=== PATIENT | male | born 1970 | race Caucasian/White ===

== ENCOUNTER 2020-09-06 12:01 | Outpatient (CLI) | payer BC | END 2020-09-06 12:02 | disposition critical access hospital (66) | LOC: EMS 12:01 | PROVIDERS: ATTEND Surgery | DX: K92.0 Hematemesis (principal) | CPT/HCPCS: A0425; A0427 ==

== ENCOUNTER 2020-09-06 12:16 | Inpatient (IN) | payer BC ==
[2020-09-06] MEDS ORDERED: SODIUM CHLORIDE 0.9% 1,000 ML IV STA (12:21)
[2020-09-06] MEDS ORDERED: PANTOPRAZOLE 80 MG in SODIUM CHLORIDE 0.9% 100ML 100 ML IV STA ×4 (12:21)
--- NOTE | 2020-09-06 12:42 | ED Physician Documentation ---
PD HPI GI BLEED - Stated complaint Stated Complaint: GI BLEED - Chief complaint Chief Complaint: Cardiac - History obtained from History obtained from: Patient, EMS - Additional information Additional information: 50-year-old gentleman presents by ambulance from a hotel in [place]. Reportedly he called paramedics for GI bleeding and confusion. He presents very confused with blood around the oropharynx. Reportedly there was alcohol on scene. The patient is confused so no further history is available from him. I was after a delay able to get a hold of his brother, Marko, his phone number is [phone]. Patient has a questionable history of alcoholism. Left [place] 2 weeks ago. Brother does not think he is enough of an alcoholic to get sick from it, nor does he think he is desperate enough to use toxic alcohols. His mother is also available by phone at [phone]. Review of Systems Unable to obtain: AMS, Confused PD PAST MEDICAL HISTORY - Present Medications Home Medications: Ambulatory Orders Medication Instructions Recorded Confirmed No Known Home Medications 09/06/20 09/06/20 - Allergies Allergies/Adverse Reactions: Allergies Allergy/AdvReac Type Severity Reaction Status Date / Time aspirin Allergy Unknown Verified 09/06/20 12:27 Penicillins Allergy Unknown Verified 09/06/20 12:27 Sulfa (Sulfonamide Allergy Unknown Verified 09/06/20 12:27 Antibiotics) PD ED PE NORMAL - Vitals Vital signs reviewed: Yes - General General: Other (confused/garbled speech, dark blood around the mouth) - HEENT HEENT: PERRL, EOMI - Neck Neck: Supple, no meningeal sign, No bony TTP - Cardiac Cardiac: Other (v tachycardia) - Respiratory Respiratory: No respiratory distress, Clear bilaterally - Abdomen Abdomen: Normal bowel sounds, Soft, Non tender - Back Back: No CVA TTP, No spinal TTP - Derm Derm: Normal color, Warm and dry - Extremities Extremities: No edema, No calf tenderness / cord - Neuro Neuro: No motor deficit, No sensory deficit, Other (confused/garbled speech) Results - Vitals Vitals: Vital Signs - 24 hr 09/06/20 09/06/20 09/06/20 12:21 12:26 13:24 Temperature 37.7 C Heart Rate 150 H 133 H 126 H Respiratory 18 18 23 Rate Blood Pressure 176/118 H 177/121 H 169/103 H O2 Saturation 96 96 95 09/06/20 09/06/20 15:26 16:14 Temperature Heart Rate 117 H 115 H Respiratory 23 21 Rate Blood Pressure 172/115 H 168/138 H O2 Saturation 99 95 Oxygen O2 Source Room air - EKG (time done) 1221 Rate: Rate (enter#) (149) Rhythm: Sinus tachycardia [place]: Other (RVH) Intervals: Prolonged QT Ischemia: Non specific changes Computer interpretation: Agree with computer - Labs Labs: Laboratory Tests 09/06/20 09/06/20 09/06/20 12:21 12:50 12:50 WBC 22.6 H RBC 4.75 Hgb 15.1 Hct 45.3 MCV 95.4 H MCH 31.8 H MCHC 33.3 RDW 13.5 Plt Count 303 MPV 9.5 Neut # (Auto) Not Reportable Lymph # (Auto) Not Reportable Stokes # (Auto) Not Reportable Eos # (Auto) Not Reportable Baso # (Auto) Not Reportable Absolute Nucleated RBC Not Reportable Total Counted 100 Band Neuts % (Manual) 6 Abnorm Lymph % (Manual) 0 Nucleated RBC % Not Reportable Neutrophils # (Manual) 20.6 H Lymphocytes # (Manual) 1.1 L Monocytes # (Manual) 0.7 Eosinophils # (Manual) 0.0 Basophils # (Manual) 0.2 H Differential Comment MANUAL DIFFERENTIAL WBC Morphology NORMAL APPEARANCE Platelet Estimate NORMAL (130-450,000) Platelet Morphology NORMAL APPEARANCE RBC Morph Micro Appear NORMAL APPEARANCE PT 13.2 H INR 1.2 VBG pH VBG pCO2 VBG pO2 VBG HCO3 VBG Total CO2 VBG O2 Saturation VBG Base Excess Sodium Potassium Chloride Carbon Dioxide Anion Gap BUN Creatinine Estimated GFR (MDRD) Glucose Lactic Acid Calcium Magnesium Total Bilirubin AST ALT Alkaline Phosphatase Ammonia Troponin I High Sens Total Protein Albumin Globulin Albumin/Globulin Ratio Lipase Urine Color Urine Clarity Urine pH Ur Specific [place] Urine Protein Urine Glucose (UA) Urine Ketones Urine Occult Blood Urine Nitrite Urine Bilirubin Urine Urobilinogen Ur Leukocyte Esterase Urine RBC Urine WBC Ur Squamous Epith Cells Urine Bacteria Urine Mucus Ur Microscopic Review Urine Culture Comments CSF Color CSF Clarity Xanthrochromic CSF WBC CSF RBC CSF Cell Count Tube # CSF Glucose CSF Total Protein Nasal Adenovirus (PCR) NOT DETECTED Nasal B. parapertussis DNA (PCR) NOT DETECTED Nasal Coronavir 229E PCR NOT DETECTED Nasal Coronavir HKU1 PCR NOT DETECTED Nasal Coronavir NL63 PCR NOT DETECTED Nasal Coronavir OC43 PCR NOT DETECTED Nasal Enterovir/Rhinovir PCR NOT DETECTED Nasal Influenza B PCR NOT DETECTED Nasal Influenza A PCR NOT DETECTED Nasal Parainfluen 1 PCR NOT DETECTED Nasal Parainfluen 2 PCR NOT DETECTED Nasal Parainfluen 3 PCR NOT DETECTED Nasal Parainfluen 4 PCR NOT DETECTED Nasal RSV (PCR) NOT DETECTED Nasal B.pertussis DNA PCR NOT DETECTED Nasal C.pneumoniae (PCR) NOT DETECTED Luis Human Metapneumo PCR NOT DETECTED Nasal M.pneumoniae (PCR) NOT DETECTED Nasal SARS-CoV-2 (PCR) NOT DETECTED Salicylates Urine Opiates Screen Ur Oxycodone Screen Urine Methadone Screen Ur Propoxyphene Screen Acetaminophen Ur Barbiturates Screen Ur Tricyclics Screen Ur Phencyclidine Scrn Ur Amphetamine Screen U Methamphetamines Scrn U Benzodiazepines Scrn Urine Cocaine Screen U Cannabinoids Screen Ethyl Alcohol Serum Ketones Blood Type Blood Type Recheck Antibody Screen Crossmatch IS Only 09/06/20 09/06/20 09/06/20 12:50 12:50 12:50 WBC RBC Hgb Hct MCV MCH MCHC RDW Plt Count MPV Neut # (Auto) Lymph # (Auto) Stokes # (Auto) Eos # (Auto) Baso # (Auto) Absolute Nucleated RBC Total Counted Band Neuts % (Manual) Abnorm Lymph % (Manual) Nucleated RBC % Neutrophils # (Manual) Lymphocytes # (Manual) Monocytes # (Manual) Eosinophils # (Manual) Basophils # (Manual) Differential Comment WBC Morphology Platelet Estimate Platelet Morphology RBC Morph Micro Appear PT INR VBG pH VBG pCO2 VBG pO2 VBG HCO3 VBG Total CO2 VBG O2 Saturation VBG Base Excess Sodium 137 Potassium 3.1 L Chloride 102 Carbon Dioxide 15 L Anion Gap 20.0 H BUN 15 Creatinine 1.3 H Estimated GFR (MDRD) 58 L Glucose 201 H Lactic Acid Calcium 8.4 L Magnesium 2.3 Total Bilirubin 1.0 AST 38 ALT 52 Alkaline Phosphatase 72 Ammonia Troponin I High Sens 6.8 Total Protein 8.4 H Albumin 5.1 Globulin 3.4 Albumin/Globulin Ratio 1.5 Lipase 20 L Urine Color Urine Clarity Urine pH Ur Specific [place] Urine Protein Urine Glucose (UA) Urine Ketones Urine Occult Blood Urine Nitrite Urine Bilirubin Urine Urobilinogen Ur Leukocyte Esterase Urine RBC Urine WBC Ur Squamous Epith Cells Urine Bacteria Urine Mucus Ur Microscopic Review Urine Culture Comments CSF Color CSF Clarity Xanthrochromic CSF WBC CSF RBC CSF Cell Count Tube # CSF Glucose CSF Total Protein Nasal Adenovirus (PCR) Nasal B. parapertussis DNA (PCR) Nasal Coronavir 229E PCR Nasal Coronavir HKU1 PCR Nasal Coronavir NL63 PCR Nasal Coronavir OC43 PCR Nasal Enterovir/Rhinovir PCR Nasal Influenza B PCR Nasal Influenza A PCR Nasal Parainfluen 1 PCR Nasal Parainfluen 2 PCR Nasal Parainfluen 3 PCR Nasal Parainfluen 4 PCR Nasal RSV (PCR) Nasal B.pertussis DNA PCR Nasal C.pneumoniae (PCR) Luis Human Metapneumo PCR Nasal M.pneumoniae (PCR) Nasal SARS-CoV-2 (PCR) Salicylates < 6.0 Urine Opiates Screen Ur Oxycodone Screen Urine Methadone Screen Ur Propoxyphene Screen Acetaminophen < 10 L Ur Barbiturates Screen Ur Tricyclics Screen Ur Phencyclidine Scrn Ur Amphetamine Screen U Methamphetamines Scrn U Benzodiazepines Scrn Urine Cocaine Screen U Cannabinoids Screen Ethyl Alcohol < 5.0 Serum Ketones NEGATIVE Blood Type O POSITIVE Blood Type Recheck Antibody Screen NEGATIVE Crossmatch IS Only See Detail 09/06/20 09/06/20 09/06/20 13:16 13:16 14:04 WBC RBC Hgb Hct MCV MCH MCHC RDW Plt Count MPV Neut # (Auto) Lymph # (Auto) Stokes # (Auto) Eos # (Auto) Baso # (Auto) Absolute Nucleated RBC Total Counted Band Neuts % (Manual) Abnorm Lymph % (Manual) Nucleated RBC % Neutrophils # (Manual) Lymphocytes # (Manual) Monocytes # (Manual) Eosinophils # (Manual) Basophils # (Manual) Differential Comment WBC Morphology Platelet Estimate Platelet Morphology RBC Morph Micro Appear PT INR VBG pH 7.249 L VBG pCO2 36.8 L VBG pO2 38.9 VBG HCO3 15.7 L VBG Total CO2 16.9 L VBG O2 Saturation 71.2 VBG Base Excess -10.6 L Sodium Potassium Chloride Carbon Dioxide Anion Gap BUN Creatinine Estimated GFR (MDRD) Glucose Lactic Acid Calcium Magnesium Total Bilirubin AST ALT Alkaline Phosphatase Ammonia 17.8 Troponin I High Sens Total Protein Albumin Globulin Albumin/Globulin Ratio Lipase Urine Color Urine Clarity Urine pH Ur Specific [place] Urine Protein Urine Glucose (UA) Urine Ketones Urine Occult Blood Urine Nitrite Urine Bilirubin Urine Urobilinogen Ur Leukocyte Esterase Urine RBC Urine WBC Ur Squamous Epith Cells Urine Bacteria Urine Mucus Ur Microscopic Review Urine Culture Comments CSF Color CSF Clarity Xanthrochromic CSF WBC CSF RBC CSF Cell Count Tube # CSF Glucose CSF Total Protein Nasal Adenovirus (PCR) Nasal B. parapertussis DNA (PCR) Nasal Coronavir 229E PCR Nasal Coronavir HKU1 PCR Nasal Coronavir NL63 PCR Nasal Coronavir OC43 PCR Nasal Enterovir/Rhinovir PCR Nasal Influenza B PCR Nasal Influenza A PCR Nasal Parainfluen 1 PCR Nasal Parainfluen 2 PCR Nasal Parainfluen 3 PCR Nasal Parainfluen 4 PCR Nasal RSV (PCR) Nasal B.pertussis DNA PCR Nasal C.pneumoniae (PCR) Luis Human Metapneumo PCR Nasal M.pneumoniae (PCR) Nasal SARS-CoV-2 (PCR) Salicylates Urine Opiates Screen NEGATIVE Ur Oxycodone Screen NEGATIVE Urine Methadone Screen NEGATIVE Ur Propoxyphene Screen NEGATIVE Acetaminophen Ur Barbiturates Screen NEGATIVE Ur Tricyclics Screen NEGATIVE Ur Phencyclidine Scrn NEGATIVE Ur Amphetamine Screen NEGATIVE U Methamphetamines Scrn NEGATIVE U Benzodiazepines Scrn NEGATIVE Urine Cocaine Screen NEGATIVE U Cannabinoids Screen NEGATIVE Ethyl Alcohol Serum Ketones Blood Type Blood Type Recheck Antibody Screen Crossmatch IS Only 09/06/20 09/06/20 09/06/20 14:04 14:54 15:50 WBC RBC Hgb Hct MCV MCH MCHC RDW Plt Count MPV Neut # (Auto) Lymph # (Auto) Stokes # (Auto) Eos # (Auto) Baso # (Auto) Absolute Nucleated RBC Total Counted Band Neuts % (Manual) Abnorm Lymph % (Manual) Nucleated RBC % Neutrophils # (Manual) Lymphocytes # (Manual) Monocytes # (Manual) Eosinophils # (Manual) Basophils # (Manual) Differential Comment WBC Morphology Platelet Estimate Platelet Morphology RBC Morph Micro Appear PT INR VBG pH VBG pCO2 VBG pO2 VBG HCO3 VBG Total CO2 VBG O2 Saturation VBG Base Excess Sodium Potassium Chloride Carbon Dioxide Anion Gap BUN Creatinine Estimated GFR (MDRD) Glucose Lactic Acid Calcium Magnesium Total Bilirubin AST ALT Alkaline Phosphatase Ammonia Troponin I High Sens Total Protein Albumin Globulin Albumin/Globulin Ratio Lipase Urine Color STRAW Urine Clarity HAZY Urine pH 6.0 Ur Specific [place] 1.020 Urine Protein 30 H Urine Glucose (UA) 100 H Urine Ketones NEGATIVE Urine Occult Blood MODERATE H Urine Nitrite NEGATIVE Urine Bilirubin NEGATIVE Urine Urobilinogen 0.2 (NORMAL) Ur Leukocyte Esterase NEGATIVE Urine RBC 6-10 H Urine WBC 0-3 Ur Squamous Epith Cells NONE SEEN Urine Bacteria None Seen Urine Mucus Few Strands Ur Microscopic Review INDICATED Urine Culture Comments NOT INDICATED CSF Color COLORLESS CSF Clarity CLEAR Xanthrochromic ABSENT CSF WBC 1 CSF RBC 0 CSF Cell Count Tube # CSF TUBE# 3 CSF Glucose 103 H CSF Total Protein 45 Nasal Adenovirus (PCR) Nasal B. parapertussis DNA (PCR) Nasal Coronavir 229E PCR Nasal Coronavir HKU1 PCR Nasal Coronavir NL63 PCR Nasal Coronavir OC43 PCR Nasal Enterovir/Rhinovir PCR Nasal Influenza B PCR Nasal Influenza A PCR Nasal Parainfluen 1 PCR Nasal Parainfluen 2 PCR Nasal Parainfluen 3 PCR Nasal Parainfluen 4 PCR Nasal RSV (PCR) Nasal B.pertussis DNA PCR Nasal C.pneumoniae (PCR) Luis Human Metapneumo PCR Nasal M.pneumoniae (PCR) Nasal SARS-CoV-2 (PCR) Salicylates Urine Opiates Screen Ur Oxycodone Screen Urine Methadone Screen Ur Propoxyphene Screen Acetaminophen Ur Barbiturates Screen Ur Tricyclics Screen Ur Phencyclidine Scrn Ur Amphetamine Screen U Methamphetamines Scrn U Benzodiazepines Scrn Urine Cocaine Screen U Cannabinoids Screen Ethyl Alcohol Serum Ketones Blood Type Blood Type Recheck O POSITIVE Antibody Screen Crossmatch IS Only 09/06/20 16:19 WBC RBC Hgb Hct MCV MCH MCHC RDW Plt Count MPV Neut # (Auto) Lymph # (Auto) Stokes # (Auto) Eos # (Auto) Baso # (Auto) Absolute Nucleated RBC Total Counted Band Neuts % (Manual) Abnorm Lymph % (Manual) Nucleated RBC % Neutrophils # (Manual) Lymphocytes # (Manual) Monocytes # (Manual) Eosinophils # (Manual) Basophils # (Manual) Differential Comment WBC Morphology Platelet Estimate Platelet Morphology RBC Morph Micro Appear PT INR VBG pH VBG pCO2 VBG pO2 VBG HCO3 VBG Total CO2 VBG O2 Saturation VBG Base Excess Sodium Potassium Chloride Carbon Dioxide Anion Gap BUN Creatinine Estimated GFR (MDRD) Glucose Lactic Acid 3.4 H* Calcium Magnesium Total Bilirubin AST ALT Alkaline Phosphatase Ammonia Troponin I High Sens Total Protein Albumin Globulin Albumin/Globulin Ratio Lipase Urine Color Urine Clarity Urine pH Ur Specific [place] Urine Protein Urine Glucose (UA) Urine Ketones Urine Occult Blood Urine Nitrite Urine Bilirubin Urine Urobilinogen Ur Leukocyte Esterase Urine RBC Urine WBC Ur Squamous Epith Cells Urine Bacteria Urine Mucus Ur Microscopic Review Urine Culture Comments CSF Color CSF Clarity Xanthrochromic CSF WBC CSF RBC CSF Cell Count Tube # CSF Glucose CSF Total Protein Nasal Adenovirus (PCR) Nasal B. parapertussis DNA (PCR) Nasal Coronavir 229E PCR Nasal Coronavir HKU1 PCR Nasal Coronavir NL63 PCR Nasal Coronavir OC43 PCR Nasal Enterovir/Rhinovir PCR Nasal Influenza B PCR Nasal Influenza A PCR Nasal Parainfluen 1 PCR Nasal Parainfluen 2 PCR Nasal Parainfluen 3 PCR Nasal Parainfluen 4 PCR Nasal RSV (PCR) Nasal B.pertussis DNA PCR Nasal C.pneumoniae (PCR) Luis Human Metapneumo PCR Nasal M.pneumoniae (PCR) Nasal SARS-CoV-2 (PCR) Salicylates Urine Opiates Screen Ur Oxycodone Screen Urine Methadone Screen Ur Propoxyphene Screen Acetaminophen Ur Barbiturates Screen Ur Tricyclics Screen Ur Phencyclidine Scrn Ur Amphetamine Screen U Methamphetamines Scrn U Benzodiazepines Scrn Urine Cocaine Screen U Cannabinoids Screen Ethyl Alcohol Serum Ketones Blood Type Blood Type Recheck Antibody Screen Crossmatch IS Only - Rads (name of study) CT of the head, chest, abdomen pelvis done without IV contrast due to the necessity to get it done expeditiously because of patient agitation Radiology: EMP read contemporaneously (Hepatomegaly, left basilar dependent atelectasis, potential colitis, mild perinephric fat stranding) Procedures - General procedure General procedure: He was difficult for IV access, he only had one IV. I personally placed a second IV, a 22-gauge in the right deep brachial vein after ChloraPrep with real-time ultrasound guidance which flushed and freddy well. - Lumbar Puncture Position: Laying left side Location: L3-L4 Anesthesia: Local lidocaine CSF: Clear Other: Sterile prep and drape, Patient tolerated well PD MEDICAL DECISION MAKING - ED course ED course: Per mom: He left to go to [place] to see his kids. 1 week ago was going to go back to [place] but she does not know how he ended up here. He had called on the way back from [place], [place] 1 week ago today. Not sure why he ended up here. Mom also notes that early this morning she received a text from him with information including bank accounts and halfway account numbers. She did not think this was abnormal because she had asked him for this information a few weeks ago. Did not suspect suicidal ideation or attempt. Per brother: He does drink alcohol but not to excess they do not think. They doubt withdrawal. I posited the idea of toxic alcohols given his unexplained acidosis. The have no suspicion of this knowing him. His point of contact is his brother, Marko, [phone]. 50-year-old gentleman presents with vague circumstances but clearly altered mental status, very tachycardic into the 150s, significant leukocytosis and moderate acidosis. No focal neurologic deficits but he is delirious and talking gibberish. Differential diagnosis was broad and includes toxicologic phenomenon, withdrawal phenomenon, infections, meningitis/encephalitis. LP was done and negative. Did culture him up and give him Rocephin and vancomycin out of an abundance of caution given the significant leukocytosis. Covid negative. Spoke with Dr. Johnson for admission at 4:30 PM. Departure - Departure Disposition: 66 [facility] DC/Xfer Clinical Impression: Altered mental status, Acidosis Condition: Serious
[2020-09-06] MEDS ORDERED: PANTOPRAZOLE 40 MG VIAL IVP SCH (12:45)
[2020-09-06 13:13] LABS: BASOPHILS % (AUTO) 0.2 %; HGB - HEMOGLOBIN 15.1 g/dL (14.0-18.0); LYMPHOCYTES % (AUTO) 3.9 %; MEAN CORPUSCULAR HEMOGLOBIN 31.8 pg (27.0-31.0); MEAN CORPUSCULAR HGB CONC 33.3 g/dL (32.0-36.0); MEAN CORPUSCULAR VOLUME 95.4 fL (80.0-94.0); MEAN PLATELET VOLUME 9.5 fL (7.4-11.4); NEUTROPHILS % (AUTO) 91.3 %; PLT - PLATELET COUNT 303 10^3/uL (130-450); RED BLOOD COUNT 4.75 10^6/uL (4.70-6.10); RED CELL DISTRIBUTION WIDTH 13.5 % (12.0-15.0); WHITE BLOOD COUNT 22.6 x10^3/uL (4.8-10.8)
[2020-09-06 13:16] LABS: ABNORMAL LYMPHS % (MANUAL) 0 %
[2020-09-06 13:17] LABS: INR 1.2 (0.8-1.2); PT - PROTHROMBIN TIME 13.2 secs (9.9-12.6)
[2020-09-06 13:24] LABS: VBG PCO2 36.8 mmHg (41-51); VBG PH 7.249 (7.31-7.41); VBG PO2 38.9 mmHg (25-47)
[2020-09-06 13:25] LABS: VBG BASE EXCESS -10.6 mmol/L (-2 - +2); VBG TOTAL CO2 16.9 mmol/L (24-29)
[2020-09-06 13:40] LABS: BAND NEUTROPHILS % (MANUAL) 6 %; BASOPHILS # (MANUAL) 0.2 10^3/uL (0-0.1); BASOPHILS % (MANUAL) 1 %; LYMPHOCYTES # (MANUAL) 1.1 10^3/uL (1.5-3.5); LYMPHOCYTES % (MANUAL) 5 %; MONOCYTES # (MANUAL) 0.7 10^3/uL (0.0-1.0); RBC MORPHOLOGY (MULTIPLE) NORMAL APPEARANCE (NORMAL)
[2020-09-06 13:41] LABS: DIFFERENTIAL COMMENT MANUAL DIFFERENTIAL; PLATELET ESTIMATE, MANUAL NORMAL (130-450,000) (NORMAL); PLATELET MORPHOLOGY NORMAL APPEARANCE (NORMAL)
[2020-09-06 14:05] LABS: ACETAMINOPHEN < 10 ug/mL (10-30); ALBUMIN 5.1 g/dL (3.2-5.5); ALBUMIN/GLOBULIN RATIO 1.5 (1.0-2.2); ALKALINE PHOSPHATASE 72 IU/L (42-121); ALT ALANINE AMINOTRANSFERASE 52 IU/L (10-60); AST ASPARTATE AMINOTRANSFERASE 38 IU/L (10-42); BUN - BLOOD UREA NITROGEN 15 mg/dL (6-20); CALCIUM 8.4 mg/dL (8.5-10.3); CARBON DIOXIDE - CO2 15 mmol/L (21-32); CHLORIDE 102 mmol/L (101-111); CREATININE 1.3 mg/dL (0.6-1.2); GLUCOSE 201 mg/dL (70-100); LIPASE 20 U/L (22-51); MAGNESIUM 2.3 mg/dL (1.7-2.8); SALICYLATE < 6.0 mg/dL; SODIUM 137 mmol/L (135-145); TOTAL PROTEIN 8.4 g/dL (6.7-8.2)
[2020-09-06 14:12] LABS: KETONES, SERUM (ACETEST) NEGATIVE (NEGATIVE)
[2020-09-06 14:14] LABS: MUDS CUTOFF CONCENTRATIONS CUTOFF CONC BELOW:
[2020-09-06 14:26] LABS: AMPHETAMINE SCREEN,URINE NEGATIVE (NEGATIVE); BENZODIAZEPINES SCREEN, URINE NEGATIVE (NEGATIVE); COCAINE SCREEN URINE NEGATIVE (NEGATIVE); METHADONE SCREEN, URINE NEGATIVE (NEGATIVE); METHAMPHETAMINES SCREEN, URINE NEGATIVE (NEGATIVE); OPIATE SCREEN, URINE NEGATIVE (NEGATIVE); OXYCODONE SCREEN, URINE NEGATIVE (NEGATIVE); TRICYCLIC ANTIDEPRESSANT,URINE NEGATIVE (NEGATIVE)
[2020-09-06 14:27] LABS: PROPOXYPHENE SCREEN, URINE NEGATIVE (NEGATIVE)
[2020-09-06 14:32] LABS: C. PNEUMONIAE- RESP PCR PANEL NOT DETECTED
[2020-09-06] MEDS ORDERED: THIAMINE INJ 100 MG in SODIUM CHLORIDE 0.9% 50 ML IV STA (14:55)
--- NOTE | 2020-09-06 14:58 | CT Report ---
PROCEDURE: HEAD WO INDICATIONS: altered, acidosis TECHNIQUE: Noncontrast 4.5 mm thick angled axial sections acquired from the foramen magnum to the vertex. For r adiation dose reduction, the following was used: automated exposure control, adjustment of mA and/or kV according to patient size. COMPARISON: None. FINDINGS: Image quality: Excellent. CSF spaces: Basal cisterns are patent. No extra-axial fluid collections. Ventricles are normal in size and shape. Brain: No midline shift. No intracranial masses or hemorrhage. Mcmahon-white matter interface is norm al. Skull and face: Calvarium and visualized facial bones are intact, without suspicious lesions. Sinuses: Visualized sinuses and mastoids are clear. IMPRESSION: 1. No acute intracranial process. Reviewed by: Tresa Davenport MD on 09/06/2020 2:56 PM PST Approved by: Tresa Davenport MD on 09/06/2020 2:56 PM [facility] Station ID: [id number]
--- NOTE | 2020-09-06 15:00 | CT Report ---
PROCEDURE: CHEST WO INDICATIONS: altered, acidosis TECHNIQUE: Noncontrast 5 mm thick sections acquired from the pulmonary apices to the posterior costophrenic angl es. 7 mm thick coronal and sagittal MIP reformats were then acquired. For radiation dose reduction, the following was used: automated exposure control, adjustment of mA and/or kV according to patient size. COMPARISON: CT abdomen pelvis 09/06/2020 FINDINGS: Image quality: Excellent. Lungs and pleura: No acute air space opacities. No pleural effusions or pneumothorax. Central and peripheral airways are patent and normal in caliber. Mediastinum: Heart size is normal. No pericardial effusion. No mediastinal adenopathy by size crit eria. Thoracic aorta and central pulmonary arteries are normal in size. Esophagus is fluid-filled w ithin the distal portion. Mild hiatal hernia. Bones and chest wall: No suspicious bony lesions. No vertebral body compression fractures. No axil yasmeen or supraclavicular adenopathy by size criteria. The thyroid is normal in size. Abdomen: Hepatic steatosis is present. Otherwise, visualized upper abdominal solid organs and bowel loops appear normal in the absence of contrast. IMPRESSION: 1. Mild hiatal hernia with fluid-filled distal esophagus. 2. Hepatic steatosis. Reviewed by: Tresa Davenport MD on 09/06/2020 2:59 PM PST Approved by: Tresa Davenport MD on 09/06/2020 2:59 PM PST Station ID: [id number]
--- NOTE | 2020-09-06 15:01 | CT Report ---
PROCEDURE: Abdomen/Pelvis WO INDICATIONS: altered, acidosis TECHNIQUE: Noncontrast 5 mm thick sections acquired from the diaphragms to the symphysis. 5 mm coronal and sagi ttal reformats were then performed. For radiation dose reduction, the following was used: automated exposure control, adjustment of mA and/or kV according to patient size. COMPARISON: None. FINDINGS: Image quality: Excellent. ABDOMEN: Lung bases: Dependent atelectasis in posterior aspect of left lung base is seen. Heart size is normal . Solid organs: Spleen is normal in size. Liver is enlarged. Hepatic steatosis is seen. Gallbladder is within normal limits Pancreas is normal in contours. No adrenal nodules. Kidneys are normal in siz e, without hydronephrosis or nephrolithiasis. There is nonspecific mild bilateral perinephric fat st randing. No perinephric fluid collection. Peritoneum and bowel: Small hiatal hernia is seen. There is no evidence of bowel obstruction. No abno rmal gastric or small bowel wall thickening. No free fluid or air. Appendix is visualized and is wit hin normal limits. Questionable wall thickening and mild pericolonic fat stranding involving distal t ransverse colon and ascending colon is seen with narrowing of the lumen. Nodes and vessels: No retroperitoneal or mesenteric adenopathy by size criteria. Aorta and inferior vena cava are normal in caliber. Miscellaneous: No ventral hernias. PELVIS: Genitourinary: Bladder wall thickness is normal. Miscellaneous: No inguinal hernias or adenopathy. Bones: No suspicious bony lesions. No vertebral body compression fractures. IMPRESSION: 1. Questionable distal transverse colon and descending colon wall thickening with mild pericolonic fa t stranding concerning for low-grade infectious inflammatory colitis. No bowel obstruction. Normal ap pendix. No free fluid or free air. 2. Nonspecific mild bilateral perinephric fat stranding. Infectious process such as polynephritis can not be excluded suggest clinical correlation. No renal stone or hydronephrosis. Normal-appearing bila teral ureters and urinary bladder. 3. Hepatomegaly and hepatic steatosis. 4. Mild left basilar dependent atelectasis. Reviewed by: Manuel Negro MD on 09/06/2020 3:00 PM PST Approved by: Manuel Negro MD on 09/06/2020 3:00 PM PST Station ID: [id number]
[2020-09-06] MEDS ORDERED: LORazepam 2 MG/ML VIAL IVP STA (15:15)
[2020-09-06] MEDS ORDERED: cefTRIAXone 2 GM in SODIUM CHLORIDE 0.9% MINIBAG 100 ML IV STA (15:56)
[2020-09-06] MEDS ORDERED: VANCOMYCIN INJ 1.5 GM in SODIUM CHLORIDE 0.9% 500 ML IV STA ×2 (15:57→17:39)
[2020-09-06 16:21] LABS: CSF - GLUCOSE 103 mg/dL (45-70)
[2020-09-06 16:28] LABS: CLARITY,CSF CLEAR (CLEAR); COLOR,CSF COLORLESS (COLORLESS); CSF TUBE # CSF TUBE# 3; CSF XANTHOCHROMIA ABSENT (ABSENT); RED BLOOD CELL,CSF 0 /mm^3 (0-1); WHITE BLOOD CELL,CSF 1 /mm^3 (0-5)
[2020-09-06] MEDS ORDERED: ONDANSETRON 4 MG/2 ML VIAL IVP PRN (16:38)
--- NOTE | 2020-09-06 16:51 | HISTORY & PHYSICAL EXAMINATION ---
Chief Complaint - Chief Complaint Chief Complaint: altered mental status History of Present Illness - Admitted From Admitted From:: [facility] ED - History Obtained From Records Reviewed: yes History obtained from: ED physician and subsequently patient - History of Present Illness HPI Comment/Other: "50-year-old gentleman presents by ambulance from a hotel in [place]. Reportedly he called paramedics for GI bleeding and confusion. He presents very confused with blood around the oropharynx. Reportedly there was alcohol on sc aixa. The patient is confused so no further history is available from him. I was after a delay able to get a hold of his brother, Marko, his phone number is [phone]. Patient has a questionable history of alcoholism. Left [place] 2 weeks ago. Brother does not think he is enough of an alcoholic to get sick from it, nor does he think he is desperate enough to use toxic alcohols. His mother is also available by phone at [phone]." The above history was obtained from the ED physicians H&P because the patient was significantly altered and unable to provide a history at time of admission. Upon arrival to the floor and examination of his tongue/mouth The residue noted appeared black but was not consistent with blood or GI bleed. He was tachycardic. Though awake and alert he was not able to carry on full conversation because his word were not intelligible. History - Past Medical History Cardiovascular: reports: High cholesterol Psych: reports: Depression - Past Surgical History Other past surgical history: Patient denied any surgical history. - Family & Social History Family History Comment/Other: Could not be obtained because patient currently has altered mental status. Social History Notes: Patient does not smoke, use recreational substances. He consumes alcohol unspecified amount. - POLST Patient has POLST: No POLST Status: Full Code Meds/Allgy - Home Medications Home Medications: Ambulatory Orders Medication Instructions Recorded Confirmed Atorvastatin [Lipitor] 40 mg PO QPM 09/06/20 09/07/20 Fluoxetine HCl [Prozac] 20 mg PO DAILY 09/06/20 09/07/20 Amlodipine Besylate/Valsartan 1 each PO DAILY #30 tablet 09/09/20 [Amlodipine-Valsartan 5-160 mg] - Allergies Allergies/Adverse Reactions: Allergies Allergy/AdvReac Type Severity Reaction Status Date / Time aspirin Allergy Unknown Verified 09/06/20 12:27 Penicillins Allergy Unknown Verified 09/06/20 12:27 Sulfa (Sulfonamide Allergy Unknown Verified 09/06/20 12:27 Antibiotics) Review of Systems - Other Findings Other Findings: This was limited because of the patient's altered mental status. Prior Level of Functionality: At baseline patient is independent of activities of daily living. Exam - Vital Signs Vital Signs: Vital Signs x48h Temp Pulse Resp BP Pulse Ox 09/06/20 16:14 115 H 21 168/138 H 95 09/06/20 15:26 117 H 23 172/115 H 99 09/06/20 13:24 126 H 23 169/103 H 95 09/06/20 12:26 133 H 18 177/121 H 96 09/06/20 12:21 37.7 C 150 H 18 176/118 H 96 - Physical Exam General Appearance: positive: No acute distress, Other (Awake, alert, not oriented to place time or reason.) Eyes Bilateral: positive: PERRL, EOMI ENT: positive: Dry mucous membranes Neck: positive: No JVD, Trachea midline Respiratory: positive: Chest non-tender, No respiratory distress, Breath sounds nml. negative: Wheezes, Rales, Rhonchi Cardiovascular: positive: Tachycardia Abdomen: positive: Non-tender, No organomegaly, Nml bowel sounds, No distention. negative: Tenderness, Guarding, Rebound Back: positive: Nml inspection Skin: positive: Color nml, No rash, Warm, Dry Extremities: positive: Non-tender, Full ROM, Nml appearance, No pedal edema Neurologic/Psychiatric: positive: Mood/affect nml, Disoriented to place, Disoriented to time, Other (Unintelligible speech) Conclusion/Plan - Problem List (1) Altered mental status Conclusion/Plan: Etiology undetermined. However differential includes CVA, Intoxication with an undetectable substance, Infection CT head without contrast was unremarkable for any intracranial process. MRI brain has been ordered for the morning. We will do neurochecks. Patient underwent an LP. Analysis was insignificant for a bacterial infection Some sample was sent for culture of CSF. Will await results. Blood cultures pending. Urine analysis was negative for infection. Patient has been placed on a CIWA protocol. (2) Leukocytosis Conclusion/Plan: Etiology undetermined. Patient WBC was 22 with a lactic acid of 3.4. CT abdomen pelvis raised the possibility of low-grade infectious/inflammatory colitis. There was mild pericolonic fat stranding noted. There was also nonspecific mild bilateral perinephric fat stranding for which polynephritis could not be ruled out. There was no renal stone or hydronephrosis. We will continue to monitor. LP analysis does not appear consistent with bacterial meningitis or viral enteritis. However sample has been sent for culture. Blood cultures pending. Patient is on vancomycin and Rocephin 2 g IV daily. will continue. Pharmacy to dose vancomycin UA was not significant for infection. Chest x-ray was unremarkable. (3) Hypertension Conclusion/Plan: Labetalol and hydralazine 10 milligrams IV every 4 hours ordered as needed for SBP > 160 - Lab Results Fish Bones: 09/09/20 04:55 09/09/20 04:55 Core Measures - Anticipated LOS I expect patient to be DC'd or transferred within 96 hours.: Yes - DVT/VTE - Prophylaxis VTE/DVT Device ordered at admit?: Yes VTE/DVT Prophylaxis med ordered at admit?: Yes
[2020-09-06 17:16] LABS: BILIRUBIN,URINE NEGATIVE (NEGATIVE); GLUCOSE, URINE (UA) 100 mg/dL (NEGATIVE); KETONES,URINE (UA) NEGATIVE (NEGATIVE); LEUKOCYTE ESTERASE, URINE NEGATIVE (NEGATIVE); NITRITE,URINE NEGATIVE (NEGATIVE); OCCULT BLOOD,URINE MODERATE (NEGATIVE); PROTEIN,URINE 30 mg/dL (NEGATIVE); UROBILINOGEN,URINE 0.2 (NORMAL) E.U./dL (NORMAL)
[2020-09-06 17:17] LABS: CLARITY,URINE HAZY (CLEAR)
[2020-09-06 17:24] LABS: BACTERIA,URINE None Seen /HPF (None Seen); MUCUS,URINE Few Strands; SQUAMOUS EPITHELIAL CELL,UR NONE SEEN (<= Few)
[2020-09-06] MEDS ORDERED: VANCOMYCIN INJ 2 GM in SODIUM CHLORIDE 0.9% 500 ML IV STA (17:37)
--- NOTE | 2020-09-06 18:26 | PHARMACY PROGRESS NOTE ---
- Therapy Status Vancomycin regimen day #: 1 Therapy status: Awaiting steady state Basis for treatment: Empirical Treatment indication: GI bleed, unknown history Trough goal: 15-20 Concurrent antibiotics: ceftriaxone 2 g q24h - KEL Risk Risk level for Acute Kidney Injury: Moderate Acute Kidney Injury risk factors: Goal trough >15 - Monitoring and Recommendation Clinical response to treatment: I&O Previous 24 hours 09/04/20 09/05/20 09/06/20 23:59 23:59 23:59 Intake Total 1251 Balance 1251 Lab Results 09/06/20 12:50 BUN 15 Creatinine 1.3 H Estimated GFR (MDRD) 58 L Monitoring plan: Daily serum creatinine
[2020-09-06] MEDS ORDERED: hydrALAZINE INJ 20 MG/ML VIAL IVP PRN (18:39)
[2020-09-06] MEDS: LORazepam 1 MG TABLET PO PRN ×2 (19:08→20:40)
[2020-09-06] MEDS: MULTIVITAMIN 10 ML, THIAMINE INJ 100 MG, FOLIC ACID INJ 1 MG in SODIUM CHLORIDE 0.9% 1,... IV SCH (19:08)
[2020-09-06] MEDS: SODIUM CHLORIDE FLUSH 0.9% 10 ML SYRINGE IVP SCH (19:09)
[2020-09-06] MEDS: metroNIDAZOLE 500 MG/100 ML 500 MG/100 ML BAG IV SCH (20:40)
[2020-09-06] MEDS: SODIUM CHLORIDE 0.9% 1,000 ML IV SCH (20:40)
[2020-09-06 21:03] LABS: HGB - HEMOGLOBIN 15.2 g/dL (14.0-18.0); MEAN CORPUSCULAR HEMOGLOBIN 32.2 pg (27.0-31.0); MEAN CORPUSCULAR HGB CONC 34.5 g/dL (32.0-36.0); MEAN CORPUSCULAR VOLUME 93.4 fL (80.0-94.0); MEAN PLATELET VOLUME 9.1 fL (7.4-11.4); RED BLOOD COUNT 4.72 10^6/uL (4.70-6.10); RED CELL DISTRIBUTION WIDTH 13.5 % (12.0-15.0); WHITE BLOOD COUNT 20.2 x10^3/uL (4.8-10.8)
[2020-09-06] MEDS: PANTOPRAZOLE 40 MG VIAL IVP SCH (22:06)
[2020-09-07] MEDS: SODIUM CHLORIDE FLUSH 0.9% 10 ML SYRINGE IVP SCH ×3 (00:31→21:49)
[2020-09-07] MEDS: LORazepam 1 MG TABLET PO PRN ×2 (00:38→03:26)
[2020-09-07] MEDS: VANCOMYCIN INJ 1 GM in SODIUM CHLORIDE 0.9% 250 ML IV SCH ×2 (02:55→14:16)
[2020-09-07] MEDS: metroNIDAZOLE 500 MG/100 ML 500 MG/100 ML BAG IV SCH ×3 (04:30→21:36)
[2020-09-07 05:09] LABS: BASOPHILS % (AUTO) 0.3 %; HGB - HEMOGLOBIN 13.6 g/dL (14.0-18.0); LYMPHOCYTES % (AUTO) 12.9 %; MEAN CORPUSCULAR HEMOGLOBIN 31.5 pg (27.0-31.0); MEAN CORPUSCULAR HGB CONC 33.1 g/dL (32.0-36.0); MEAN CORPUSCULAR VOLUME 95.1 fL (80.0-94.0); MEAN PLATELET VOLUME 9.4 fL (7.4-11.4); MONOCYTES % (AUTO) 8.9 %; NEUTROPHILS % (AUTO) 77.2 %; PLT - PLATELET COUNT 266 10^3/uL (130-450); RED BLOOD COUNT 4.32 10^6/uL (4.70-6.10); RED CELL DISTRIBUTION WIDTH 13.8 % (12.0-15.0); WHITE BLOOD COUNT 17.9 x10^3/uL (4.8-10.8)
[2020-09-07 05:22] LABS: ABNORMAL LYMPHS % (MANUAL) 0 %
[2020-09-07 06:10] LABS: BAND NEUTROPHILS % (MANUAL) 5 %; DIFFERENTIAL COMMENT MANUAL DIFFERENTIAL; LYMPHOCYTES % (MANUAL) 17 %; MONOCYTES # (MANUAL) 1.3 10^3/uL (0.0-1.0); PLATELET ESTIMATE, MANUAL NORMAL (130-450,000) (NORMAL); RBC MORPHOLOGY (MULTIPLE) NORMAL APPEARANCE (NORMAL)
[2020-09-07] MEDS: PRENATAL VITAMIN TABLET PO SCH (08:03)
[2020-09-07] MEDS: PANTOPRAZOLE 40 MG VIAL IVP SCH ×2 (08:03→21:37)
[2020-09-07] MEDS: THIAMINE 100 MG TABLET PO SCH (08:03)
[2020-09-07] MEDS: cefTRIAXone 2 GM in SODIUM CHLORIDE 0.9% MINIBAG 100 ML IV SCH (08:07)
[2020-09-07] MEDS ORDERED: cefTRIAXone 2 GM VIAL ONE (08:07)
--- NOTE | 2020-09-07 08:09 | PROVIDER PROGRESS NOTE ---
Assessment/Plan - Problem List (1) Altered mental status Assessment/Plan: Patient's mentation improve through the course of the day. He was able to tell that he was in [facility] in [place] He acknowledged that he lives in [place] and that he was recently in [place]. However he was unable to tell how he found himself on [facility] when he was returning to [place] from [place]. By evening he was taken out of restraints. Continue CISC protocol (2) Leukocytosis Assessment/Plan: Reactive versus infectious. CT scan of the abdomen pelvis was suggestive of colitis. Patient is on empiric antibiotics with vancomycin, Rocephin and Flagyl due to altered mental status as well. No significant findings on CSF analysis to date. Blood cultures are no growth to date. Patient's white blood cell count today was 17. This is an improvement from 22 yesterday. We will continue to monitor. (3) Hypertension Assessment/Plan: Labetalol and hydralazine 10 milligrams IV every 4 hours ordered as needed for SBP > 160 (4) Colitis Assessment/Plan: Infectious versus inflammatory. Patient is on vancomycin, Rocephin and Flagyl. White blood cell count today is 17 - Current Meds Current Meds: Current Medications Generic Name Dose Route Start Last Admin Trade Name Freq PRN Reason Stop Dose Admin Sodium Chloride 1,000 mls @ 100 mls/hr 09/06/20 17:00 09/06/20 20:40 Normal Saline 0.9% IV 100 mls/hr .Q10H BONNIE Administration Multivitamins 10 ml/ Thiamine 1,011.2 mls @ 100 mls/hr 09/06/20 16:48 09/06/20 22:06 HCl 100 mg/ Folic Acid 1 mg/ IV 100 mls/hr Sodium Chloride DAILY BONNIE Infusion Ceftriaxone Sodium 2 gm/ 100 mls @ 200 mls/hr 09/07/20 09:00 09/07/20 08:07 Sodium Chloride IV 09/12/20 09:29 200 mls/hr DAILY BONNIE Administration Vancomycin HCl 1 gm/ Sodium 250 mls @ 167 mls/hr 09/07/20 03:00 09/07/20 04:30 Chloride IV Infused Q12H BONNIE Infusion Metronidazole 500 mg in 100 mls @ 100 mls/hr 09/06/20 20:00 09/07/20 06:40 Flagyl 500 Mg/100 Ml IV Infused Q8H BONNIE Infusion Lorazepam 1 mg 09/06/20 16:48 09/07/20 03:26 Lorazepam 1 Mg Tablet PO 1 mg Q1H PRN Administration CIWA > 8 Protocol Pantoprazole Sodium 40 mg 09/06/20 21:00 09/07/20 08:03 Pantoprazole 40 Mg Vial IVP 40 mg BID BONNIE Administration Multivit/Folic Acid/Iron 1 tab 09/07/20 09:00 09/07/20 08:03 Vitamin Tablet PO 1 tab DAILY BONNIE Administration Sodium Chloride 10 ml 09/06/20 17:00 09/07/20 08:03 Sodium Chloride Flush 0.9% 10 Ml Syringe IVP 10 ml 0100,0900,1700 BONNIE Administration Thiamine HCl 100 mg 09/07/20 09:00 09/07/20 08:03 Thiamine 100 Mg Tablet PO 100 mg DAILY BONNIE Administration - Lab Result Fish Bone Diagrams: 09/08/20 04:34 09/08/20 04:34 - Additional Planning My Orders: My Active Orders 09/06/20 Dinner Clear Liquid Diet [DIET] 09/06/20 16:38 Activity Orders [RC] Q2HR IO [RC] IOSHIFT Initiate Bowel Care Protocol [RC] .protocol Initiate Line Care Protocol [RC] QSHIFT Initiate Personal Care Protoco [RC] .protocol Telemetry- [RC] Q4HR Vital Signs [RC] Q4HR Ondansetron Inj [Zofran Inj] 4 mg IVP Q6HR PRN Sodium Chloride Flush 0.9% [Normal Saline Flush 0.9%] 10 ml IVP PRN PRN Code Status [OTHERS] Routine Condition of Patient [OTHERS] Routine DVT Prophylaxis [OTHERS] Routine 09/06/20 16:40 SCDs [RC] QSHIFT 09/06/20 16:48 CIWA - AR Score Card [RC] Q4HR LORazepam [Ativan] 1 mg PO Q1H PRN Multivitamin [Infuvite] 10 ml Thiamine Inj [Vitamin B-1 Inj] 100 mg Folic Acid Inj 1 mg Sodium Chloride 0.9% [Normal Saline 0.9%] 1,000 ml IV DAILY 09/06/20 16:49 Vancomycin: Pharmacy To Dose [Vancomycin-Pharmacy To Dose] 1 each ONCE PRN 09/06/20 17:00 Sodium Chloride 0.9% [Normal Saline 0.9%] 1,000 ml IV 100 mls/hr Sodium Chloride Flush 0.9% [Normal Saline Flush 0.9%] 10 ml IVP 0100,0900,1700 09/06/20 18:37 Labetalol Syringe [Trandate Syringe] 10 mg IVP Q4H PRN 09/06/20 18:39 hydrALAZINE INJ [Apresoline Inj] 10 mg IVP Q4H PRN 09/06/20 20:00 metroNIDAZOLE 500 MG/100 ML [Flagyl 500 mg/100 ml] 500 mg in 100 ml IV Q8H 09/06/20 21:00 Pantoprazole [Protonix] 40 mg IVP BID 09/07/20 03:00 Vancomycin Inj [Vancomycin] 1 gm Sodium Chloride 0.9% [Normal Saline 0.9%] 250 ml IV Q12H 09/07/20 09:00 BRAIN WO [MRI] Routine Vitamin [Trinatal Rx 1] 1 tab PO DAILY Thiamine [Vitamin B-1] 100 mg PO DAILY cefTRIAXone [Rocephin] 2 gm Sodium Chloride 0.9% Minibag [Normal Saline 0.9% Minibag] 100 ml IV DAILY 09/08/20 05:00 BMP - BASIC METABOLIC PANEL [CHEM] DAILYLAB CBC - COMP BLD CT W/AUTO DIFF [HEME] DAILYLAB 09/09/20 05:00 BMP - BASIC METABOLIC PANEL [CHEM] DAILYLAB CBC - COMP BLD CT W/AUTO DIFF [HEME] DAILYLAB 09/10/20 05:00 BMP - BASIC METABOLIC PANEL [CHEM] DAILYLAB CBC - COMP BLD CT W/AUTO DIFF [HEME] DAILYLAB 09/11/20 05:00 BMP - BASIC METABOLIC PANEL [CHEM] DAILYLAB CBC - COMP BLD CT W/AUTO DIFF [HEME] DAILYLAB Subjective - Subjective Patient Reports: Other (Patient was in restraints at the time of my exam. His speech was occasionally intelligible however for the most part of conversation his speech was difficult to discern. He did not have any other neurologic s ymptoms. Comprehension was intact. He was able to follow commands appropriately.) Objective Vital Signs: Vital Signs - 24 hr 09/06/20 09/06/20 09/06/20 12:21 12:26 13:24 Temperature 37.7 C Heart Rate 150 H 133 H 126 H Heart Rate [ Brachial] Respiratory 18 18 23 Rate Blood Pressure 176/118 H 177/121 H 169/103 H Blood Pressure [Left Brachial artery] O2 Saturation 96 96 95 09/06/20 09/06/20 09/06/20 15:26 16:14 17:59 Temperature 36.8 C Heart Rate 117 H 115 H Heart Rate [ 120 H Brachial] Respiratory 23 21 20 Rate Blood Pressure 172/115 H 168/138 H Blood Pressure 163/105 H [Left Brachial artery] O2 Saturation 99 95 96 09/06/20 09/07/20 09/07/20 21:00 00:08 04:57 Temperature 36.9 C 37.0 C 37.3 C Heart Rate Heart Rate [ 112 H 108 H 104 H Brachial] Respiratory 18 20 20 Rate Blood Pressure Blood Pressure 155/107 H 154/96 H 150/89 H [Left Brachial artery] O2 Saturation 97 97 96 Oxygen O2 Source Room air I&O (Last 24 Hrs): Intake and Output Totals x24h 09/05/20 09/06/20 09/07/20 23:59 23:59 23:59 Intake Total 2219.333 800 Balance 2219.333 800 General: Alert, Oriented x3 HEENT: Atraumatic, PERRLA, EOMI Neck: Supple, No JVD Neuro: Alert, Non Focal, Other (Not intelligible) Cardiovascular: Regular rate, No murmurs Respiratory: Chest non-tender, No respiratory distress, Breath sounds nml Abdomen: Normal bowel sounds, Soft Extremities: No clubbing, No cyanosis, No edema - Results Results: Laboratory Results WBC 17.9 x10^3/uL (4.8-10.8) H 09/07/20 04:52 RBC 4.32 10^6/uL (4.70-6.10) L 09/07/20 04:52 Hgb 13.6 g/dL (14.0-18.0) L 09/07/20 04:52 Hct 41.1 % (42.0-52.0) L 09/07/20 04:52 MCV 95.1 fL (80.0-94.0) H 09/07/20 04:52 MCH 31.5 pg (27.0-31.0) H 09/07/20 04:52 MCHC 33.1 g/dL (32.0-36.0) 09/07/20 04:52 RDW 13.8 % (12.0-15.0) 09/07/20 04:52 Plt Count 266 10^3/uL (130-450) 09/07/20 04:52 MPV 9.4 fL (7.4-11.4) 09/07/20 04:52 Neut # (Auto) Not Reportable 09/07/20 04:52 Lymph # (Auto) Not Reportable 09/07/20 04:52 [place] # (Auto) Not Reportable 09/07/20 04:52 Eos # (Auto) Not Reportable 09/07/20 04:52 Baso # (Auto) Not Reportable 09/07/20 04:52 Absolute Nucleated RBC Not Reportable 09/07/20 04:52 Total Counted 100 09/07/20 04:52 Band Neuts % (Manual) 5 % (0-10) 09/07/20 04:52 Abnorm Lymph % (Manual) 0 % 09/07/20 04:52 Nucleated RBC % Not Reportable 09/07/20 04:52 Neutrophils # (Manual) 13.6 10^3/uL (1.5-6.6) H 09/07/20 04:52 Lymphocytes # (Manual) 3.0 10^3/uL (1.5-3.5) 09/07/20 04:52 Monocytes # (Manual) 1.3 10^3/uL (0.0-1.0) H 09/07/20 04:52 Eosinophils # (Manual) 0.0 10^3/uL (0-0.7) 09/07/20 04:52 Basophils # (Manual) 0.0 10^3/uL (0-0.1) 09/07/20 04:52 Differential Comment MANUAL DIFFERENTIAL 09/07/20 04:52 WBC Morphology NORMAL APPEARANCE (NORMAL) 09/06/20 12:50 Platelet Estimate NORMAL (130-450,000) (NORMAL) 09/07/20 04:52 Platelet Morphology NORMAL APPEARANCE (NORMAL) 09/06/20 12:50 RBC Morph Micro Appear NORMAL APPEARANCE (NORMAL) 09/07/20 04:52 PT 13.2 secs (9.9-12.6) H 09/06/20 12:50 INR 1.2 (0.8-1.2) 09/06/20 12:50 VBG pH 7.249 (7.31-7.41) L 09/06/20 13:16 VBG pCO2 36.8 mmHg (41-51) L 09/06/20 13:16 VBG pO2 38.9 mmHg (25-47) 09/06/20 13:16 VBG HCO3 15.7 mmol/L (23-28) L 09/06/20 13:16 VBG Total CO2 16.9 mmol/L (24-29) L 09/06/20 13:16 VBG O2 Saturation 71.2 % (60-80) 09/06/20 13:16 VBG Base Excess -10.6 mmol/L (-2 - +2) L 09/06/20 13:16 Sodium 139 mmol/L (135-145) 09/07/20 04:52 Potassium 3.2 mmol/L (3.5-5.0) L 09/07/20 04:52 Chloride 109 mmol/L (101-111) 09/07/20 04:52 Carbon Dioxide 20 mmol/L (21-32) L 09/07/20 04:52 Anion Gap 10.0 (6-13) 09/07/20 04:52 BUN 12 mg/dL (6-20) 09/07/20 04:52 Creatinine 1.0 mg/dL (0.6-1.2) 09/07/20 04:52 Estimated GFR (MDRD) 78 (>89) L 09/07/20 04:52 Glucose 86 mg/dL (70-100) 09/07/20 04:52 Lactic Acid 1.5 mmol/L (0.5-2.2) 09/07/20 04:52 Calcium 8.0 mg/dL (8.5-10.3) L 09/07/20 04:52 Magnesium 2.3 mg/dL (1.7-2.8) 09/06/20 12:50 Total Bilirubin 1.0 mg/dL (0.2-1.0) 09/06/20 12:50 AST 38 IU/L (10-42) 09/06/20 12:50 ALT 52 IU/L (10-60) 09/06/20 12:50 Alkaline Phosphatase 72 IU/L (42-121) 09/06/20 12:50 Ammonia 17.8 umol/L (7-35) 09/06/20 13:16 Total Creatine Kinase 467 IU/L (22-269) H 09/06/20 16:55 Troponin I High Sens 6.8 ng/L (2.3-19.7) 09/06/20 12:50 Total Protein 8.4 g/dL (6.7-8.2) H 09/06/20 12:50 Albumin 5.1 g/dL (3.2-5.5) 09/06/20 12:50 Globulin 3.4 g/dL (2.1-4.2) 09/06/20 12:50 Albumin/Globulin Ratio 1.5 (1.0-2.2) 09/06/20 12:50 Lipase 20 U/L (22-51) L 09/06/20 12:50 Urine Color STRAW 09/06/20 14:04 Urine Clarity HAZY (CLEAR) 09/06/20 14:04 Urine pH 6.0 PH (5.0-7.5) 09/06/20 14:04 Ur Specific [place] 1.020 (1.002-1.030) 09/06/20 14:04 Urine Protein 30 mg/dL (NEGATIVE) H 09/06/20 14:04 Urine Glucose (UA) 100 mg/dL (NEGATIVE) H 09/06/20 14:04 Urine Ketones NEGATIVE mg/dL (NEGATIVE) 09/06/20 14:04 Urine Occult Blood MODERATE (NEGATIVE) H 09/06/20 14:04 Urine Nitrite NEGATIVE (NEGATIVE) 09/06/20 14:04 Urine Bilirubin NEGATIVE (NEGATIVE) 09/06/20 14:04 Urine Urobilinogen 0.2 (NORMAL) E.U./dL (NORMAL) 09/06/20 14:04 Ur Leukocyte Esterase NEGATIVE (NEGATIVE) 09/06/20 14:04 Urine RBC 6-10 /HPF (0-5) H 09/06/20 14:04 Urine WBC 0-3 /HPF (0-3) 09/06/20 14:04 Ur Squamous Epith Cells NONE SEEN (<= Few) 09/06/20 14:04 Urine Bacteria None Seen /HPF (None Seen) 09/06/20 14:04 Urine Mucus Few Strands 09/06/20 14:04 Ur Microscopic Review INDICATED 09/06/20 14:04 Urine Culture Comments NOT INDICATED 09/06/20 14:04 CSF Color COLORLESS (COLORLESS) 09/06/20 15:50 CSF Clarity CLEAR (CLEAR) 09/06/20 15:50 Xanthrochromic ABSENT (ABSENT) 09/06/20 15:50 CSF WBC 1 /mm^3 (0-5) 09/06/20 15:50 CSF RBC 0 /mm^3 (0-1) 09/06/20 15:50 CSF Cell Count Tube # CSF TUBE# 3 09/06/20 15:50 CSF Glucose 103 mg/dL (45-70) H 09/06/20 15:50 CSF Total Protein 45 mg/dL (15-45) 09/06/20 15:50 Nasal Adenovirus (PCR) NOT DETECTED 09/06/20 12:21 Nasal B. parapertussis DNA (PCR) NOT DETECTED 09/06/20 12:21 Nasal Coronavir 229E PCR NOT DETECTED 09/06/20 12:21 Nasal Coronavir HKU1 PCR NOT DETECTED 09/06/20 12:21 Nasal Coronavir NL63 PCR NOT DETECTED 09/06/20 12:21 Nasal Coronavir OC43 PCR NOT DETECTED 09/06/20 12:21 Nasal Enterovir/Rhinovir PCR NOT DETECTED 09/06/20 12:21 Nasal Influenza B PCR NOT DETECTED 09/06/20 12:21 Nasal Influenza A PCR NOT DETECTED 09/06/20 12:21 Nasal Parainfluen 1 PCR NOT DETECTED 09/06/20 12:21 Nasal Parainfluen 2 PCR NOT DETECTED 09/06/20 12:21 Nasal Parainfluen 3 PCR NOT DETECTED 09/06/20 12:21 Nasal Parainfluen 4 PCR NOT DETECTED 09/06/20 12:21 Nasal RSV (PCR) NOT DETECTED 09/06/20 12:21 Nasal B.pertussis DNA PCR NOT DETECTED 09/06/20 12:21 Nasal C.pneumoniae (PCR) NOT DETECTED 09/06/20 12:21 Luis Human Metapneumo PCR NOT DETECTED 09/06/20 12:21 Nasal M.pneumoniae (PCR) NOT DETECTED 09/06/20 12:21 Nasal SARS-CoV-2 (PCR) NOT DETECTED 09/06/20 12:21 Salicylates < 6.0 mg/dL 09/06/20 12:50 Urine Opiates Screen NEGATIVE (NEGATIVE) 09/06/20 14:04 Ur Oxycodone Screen NEGATIVE (NEGATIVE) 09/06/20 14:04 Urine Methadone Screen NEGATIVE (NEGATIVE) 09/06/20 14:04 Ur Propoxyphene Screen NEGATIVE (NEGATIVE) 09/06/20 14:04 Acetaminophen < 10 ug/mL (10-30) L 09/06/20 12:50 Ur Barbiturates Screen NEGATIVE (NEGATIVE) 09/06/20 14:04 Ur Tricyclics Screen NEGATIVE (NEGATIVE) 09/06/20 14:04 Ur Phencyclidine Scrn NEGATIVE (NEGATIVE) 09/06/20 14:04 Ur Amphetamine Screen NEGATIVE (NEGATIVE) 09/06/20 14:04 U Methamphetamines Scrn NEGATIVE (NEGATIVE) 09/06/20 14:04 U Benzodiazepines Scrn NEGATIVE (NEGATIVE) 09/06/20 14:04 Urine Cocaine Screen NEGATIVE (NEGATIVE) 09/06/20 14:04 U Cannabinoids Screen NEGATIVE (NEGATIVE) 09/06/20 14:04 Ethyl Alcohol < 5.0 mg/dL 09/06/20 12:50 Serum Ketones NEGATIVE (NEGATIVE) 09/06/20 12:50 Blood Type O POSITIVE 09/06/20 12:50 Blood Type Recheck O POSITIVE 09/06/20 14:54 Antibody Screen NEGATIVE 09/06/20 12:50 Crossmatch IS Only See Detail 09/06/20 12:50 ABX Reporting Has patient been on IV antibiotics over the past 48 hours?: Yes
[2020-09-07] MEDS: MULTIVITAMIN 10 ML, THIAMINE INJ 100 MG, FOLIC ACID INJ 1 MG in SODIUM CHLORIDE 0.9% 1,... IV SCH (08:21)
[2020-09-07] MEDS: POTASSIUM CHLOR 10 MEQ/100 ML 10 MEQ/100 ML BAG IV SCH ×2 (08:47→09:45)
[2020-09-07] MEDS: SODIUM CHLORIDE 0.9% 1,000 ML IV SCH ×2 (08:51→21:48)
[2020-09-07] MEDS: SODIUM CHLORIDE FLUSH 0.9% 10 ML SYRINGE IVP PRN (21:37)
[2020-09-08] MEDS: SODIUM CHLORIDE FLUSH 0.9% 10 ML SYRINGE IVP SCH ×3 (00:14→16:34)
[2020-09-08] MEDS: VANCOMYCIN INJ 1 GM in SODIUM CHLORIDE 0.9% 250 ML IV SCH (02:57)
[2020-09-08] MEDS: metroNIDAZOLE 500 MG/100 ML 500 MG/100 ML BAG IV SCH ×3 (03:47→19:17)
[2020-09-08 05:18] LABS: BASOPHILS # (AUTO) 0.1 10^3/uL (0.0-0.1); BASOPHILS % (AUTO) 0.5 %; EOSINOPHILS # (AUTO) 0.1 10^3/uL (0.0-0.7); EOSINOPHILS % (AUTO) 0.7 %; HGB - HEMOGLOBIN 12.6 g/dL (14.0-18.0); LYMPHOCYTES # (AUTO) 2.4 10^3/uL (1.5-3.5); LYMPHOCYTES % (AUTO) 22.3 %; MEAN CORPUSCULAR HEMOGLOBIN 31.3 pg (27.0-31.0); MEAN CORPUSCULAR HGB CONC 33.2 g/dL (32.0-36.0); MEAN CORPUSCULAR VOLUME 94.3 fL (80.0-94.0); MEAN PLATELET VOLUME 9.3 fL (7.4-11.4); MONOCYTES # (AUTO) 1.1 10^3/uL (0.0-1.0); MONOCYTES % (AUTO) 9.7 %; NEUTROPHILS # (AUTO) 7.3 10^3/uL (1.5-6.6); NEUTROPHILS % (AUTO) 66.5 %; PLT - PLATELET COUNT 234 10^3/uL (130-450); RED BLOOD COUNT 4.02 10^6/uL (4.70-6.10); RED CELL DISTRIBUTION WIDTH 13.8 % (12.0-15.0)
[2020-09-08 05:25] LABS: CALCIUM 7.9 mg/dL (8.5-10.3); CREATININE 0.9 mg/dL (0.6-1.2)
[2020-09-08] MEDS ORDERED: POTASSIUM CHLORIDE 20 MEQ TABLET PO ONE (08:15)
--- NOTE | 2020-09-08 08:16 | PROVIDER PROGRESS NOTE ---
Assessment/Plan - Problem List (1) Altered mental status Assessment/Plan: Resolved. Patient's mentation is back to normal today. He is able to carry on a full conversation. He tells me on the day of admission he had taken half a bottle of Benadryl pills with about 6 cans of beer. He has been under tremendous stress from problems with his finances and his relationship with his ex. Since his divorce, his ex moved to [place] with the children. The patient lives in [place]. He felt things were getting out of his control. He denies any suicidal ideations currently and denied any previous suicidal atte mpts. He is very remorseful about his actions. He permitted me to talk to his younger brother Marko Osborne and was also agreeable to talk with him Patient was put on suicide precautions yesterday. He was seen by social work today and deemed not to be in danger of harm to himself at present. Patient is still mildly tachycardic. He also has a slightly elevated diastolic blood pressure. He also reports ringing in his ears and is mildly tremulous. We will continue to monitor and treat accordingly. He was given a dose of 1mg Ativan p.o. x1 for anxiety Anticipating patient will be medically stable or cleared for discharge tomorrow. His brother is going to stay with him in [facility] for a few days after discharge. The MRI ordered earlier was discontinued. Vancomycin and Rocephin was discontinued today. It is likely patient would not need CIWA protocol however will keep the order in place for now. Poison control who advised repeating salicylate and liver enzymes. Also advised continued monitoring to resolution of symptoms.. (2) Leukocytosis Assessment/Plan: Improving. Patient's white blood cell count today is 11. This is an improvement from 22 at time of admission. Vancomycin and Rocephin discontinued. Will likely discontinue Flagyl tomorrow. Analysis of CSF has been negative to date. Blood cultures have been no growth to date. (3) Hypertension Assessment/Plan: On labetalol and hydralazine 10 mg IV every 4 hours as needed. (4) Colitis Assessment/Plan: His white blood cell count today was 11. This is an improvement from 22 at day of admission. Vancomycin and Rocephin was discontinued. Will discontinue Flagyl tomorrow. - Current Meds Current Meds: Current Medications Generic Name Dose Route Start Last Admin Trade Name Mahamed PRN Reason Stop Dose Admin Sodium Chloride 1,000 mls @ 100 mls/hr 09/06/20 17:00 09/07/20 21:48 Normal Saline 0.9% IV 100 mls/hr .Q10H BONNIE Administration Ceftriaxone Sodium 2 gm/ 100 mls @ 200 mls/hr 09/07/20 09:00 09/07/20 08:53 Sodium Chloride IV 09/12/20 09:29 Infused DAILY BONNIE Infusion Vancomycin HCl 1 gm/ Sodium 250 mls @ 167 mls/hr 09/07/20 03:00 09/08/20 06:27 Chloride IV Infused Q12H BONNIE Infusion Metronidazole 500 mg in 100 mls @ 100 mls/hr 09/06/20 20:00 09/08/20 04:50 Flagyl 500 Mg/100 Ml IV Infused Q8H BONNIE Infusion Lorazepam 1 mg 09/06/20 16:48 09/07/20 03:26 Lorazepam 1 Mg Tablet PO 1 mg Q1H PRN Administration CIWA > 8 Protocol Pantoprazole Sodium 40 mg 09/06/20 21:00 09/07/20 21:37 Pantoprazole 40 Mg Vial IVP 40 mg BID BONNIE Administration Multivit/Folic Acid/Iron 1 tab 09/07/20 09:00 09/07/20 08:03 Vitamin Tablet PO 1 tab DAILY BONNIE Administration Sodium Chloride 10 ml 09/06/20 16:38 09/07/20 21:37 Sodium Chloride Flush 0.9% 10 Ml Syringe IVP 10 ml PRN PRN Administration NEEDED PER PROVIDER ORDERS Sodium Chloride 10 ml 09/06/20 17:00 09/08/20 00:14 Sodium Chloride Flush 0.9% 10 Ml Syringe IVP 10 ml 0100,0900,1700 BONNIE Administration Thiamine HCl 100 mg 09/07/20 09:00 09/07/20 08:03 Thiamine 100 Mg Tablet PO 100 mg DAILY BONNIE Administration - Lab Result Fish Bone Diagrams: 09/08/20 04:34 09/08/20 04:34 - Additional Planning My Orders: My Active Orders 09/07/20 09:00 BRAIN WO [MRI] Routine Vitamin [Trinatal Rx 1] 1 tab PO DAILY Thiamine [Vitamin B-1] 100 mg PO DAILY cefTRIAXone [Rocephin] 2 gm Sodium Chloride 0.9% Minibag [Normal Saline 0.9% Minibag] 100 ml IV DAILY 09/08/20 08:15 Potassium Chloride [K-Dur] 40 meq PO ONCE ONE 09/09/20 05:00 BMP - BASIC METABOLIC PANEL [CHEM] DAILYLAB CBC - COMP BLD CT W/AUTO DIFF [HEME] DAILYLAB 09/10/20 05:00 BMP - BASIC METABOLIC PANEL [CHEM] DAILYLAB CBC - COMP BLD CT W/AUTO DIFF [HEME] DAILYLAB 09/11/20 05:00 BMP - BASIC METABOLIC PANEL [CHEM] DAILYLAB CBC - COMP BLD CT W/AUTO DIFF [HEME] DAILYLAB Subjective - Subjective Patient Reports: Other (Patient was more awake and alert and able to carry a full conversation today. He is mildly tachycardic and complains of some ringing in his ears. He also complained of a dry mouth and slight dizziness. Slightly ji ttery) Objective Vital Signs: Vital Signs - 24 hr 09/07/20 09/07/20 09/07/20 12:33 15:59 20:19 Temperature 36.7 C 36.8 C 36.8 C Heart Rate [ 102 H 103 H 103 H Brachial] Respiratory 20 24 20 Rate Blood Pressure 142/90 H [Left Brachial artery] Blood Pressure 143/93 H 145/98 H [Right Brachial artery] O2 Saturation 94 95 94 09/08/20 09/08/20 09/08/20 00:25 04:35 07:54 Temperature 36.6 C 36.7 C 36.8 C Heart Rate [ 106 H 103 H 105 H Brachial] Respiratory 18 20 21 Rate Blood Pressure [Left Brachial artery] Blood Pressure 147/90 H 151/100 H 141/105 H [Right Brachial artery] O2 Saturation 97 96 98 Oxygen O2 Source Room air I&O (Last 24 Hrs): Intake and Output Totals x24h 09/06/20 09/07/20 09/08/20 23:59 23:59 23:59 Intake Total 4638.333 5769.534 500 Output Total 5308 550 Balance 2210.651 3644.534 -50 General: Alert, Oriented x3, No acute distress HEENT: PERRLA, EOMI Neck: Supple, No JVD Neuro: Alert, Non Focal, Oriented Times 3 Cardiovascular: Other (Mildly tachycardic) Respiratory: Chest non-tender, No respiratory distress, Breath sounds nml Abdomen: Normal bowel sounds, Soft Extremities: No clubbing, No cyanosis, No edema Skin: No rashes - Results Results: Laboratory Results WBC 11.0 x10^3/uL (4.8-10.8) H 09/08/20 04:34 RBC 4.02 10^6/uL (4.70-6.10) L 09/08/20 04:34 Hgb 12.6 g/dL (14.0-18.0) L 09/08/20 04:34 Hct 37.9 % (42.0-52.0) L 09/08/20 04:34 MCV 94.3 fL (80.0-94.0) H 09/08/20 04:34 MCH 31.3 pg (27.0-31.0) H 09/08/20 04:34 MCHC 33.2 g/dL (32.0-36.0) 09/08/20 04:34 RDW 13.8 % (12.0-15.0) 09/08/20 04:34 Plt Count 234 10^3/uL (130-450) 09/08/20 04:34 MPV 9.3 fL (7.4-11.4) 09/08/20 04:34 Neut # (Auto) 7.3 10^3/uL (1.5-6.6) H 09/08/20 04:34 Lymph # (Auto) 2.4 10^3/uL (1.5-3.5) 09/08/20 04:34 Rowan # (Auto) 1.1 10^3/uL (0.0-1.0) H 09/08/20 04:34 Eos # (Auto) 0.1 10^3/uL (0.0-0.7) 09/08/20 04:34 Baso # (Auto) 0.1 10^3/uL (0.0-0.1) 09/08/20 04:34 Absolute Nucleated RBC 0.00 x10^3/uL 09/08/20 04:34 Total Counted 100 09/07/20 04:52 Band Neuts % (Manual) 5 % (0-10) 09/07/20 04:52 Abnorm Lymph % (Manual) 0 % 09/07/20 04:52 Nucleated RBC % 0.0 /100WBC 09/08/20 04:34 Neutrophils # (Manual) 13.6 10^3/uL (1.5-6.6) H 09/07/20 04:52 Lymphocytes # (Manual) 3.0 10^3/uL (1.5-3.5) 09/07/20 04:52 Monocytes # (Manual) 1.3 10^3/uL (0.0-1.0) H 09/07/20 04:52 Eosinophils # (Manual) 0.0 10^3/uL (0-0.7) 09/07/20 04:52 Basophils # (Manual) 0.0 10^3/uL (0-0.1) 09/07/20 04:52 Differential Comment MANUAL DIFFERENTIAL 09/07/20 04:52 WBC Morphology NORMAL APPEARANCE (NORMAL) 09/06/20 12:50 Platelet Estimate NORMAL (130-450,000) (NORMAL) 09/07/20 04:52 Platelet Morphology NORMAL APPEARANCE (NORMAL) 09/06/20 12:50 RBC Morph Micro Appear NORMAL APPEARANCE (NORMAL) 09/07/20 04:52 PT 13.2 secs (9.9-12.6) H 09/06/20 12:50 INR 1.2 (0.8-1.2) 09/06/20 12:50 VBG pH 7.249 (7.31-7.41) L 09/06/20 13:16 VBG pCO2 36.8 mmHg (41-51) L 09/06/20 13:16 VBG pO2 38.9 mmHg (25-47) 09/06/20 13:16 VBG HCO3 15.7 mmol/L (23-28) L 09/06/20 13:16 VBG Total CO2 16.9 mmol/L (24-29) L 09/06/20 13:16 VBG O2 Saturation 71.2 % (60-80) 09/06/20 13:16 VBG Base Excess -10.6 mmol/L (-2 - +2) L 09/06/20 13:16 Sodium 141 mmol/L (135-145) 09/08/20 04:34 Potassium 3.2 mmol/L (3.5-5.0) L 09/08/20 04:34 Chloride 113 mmol/L (101-111) H 09/08/20 04:34 Carbon Dioxide 19 mmol/L (21-32) L 09/08/20 04:34 Anion Gap 9.0 (6-13) 09/08/20 04:34 BUN 11 mg/dL (6-20) 09/08/20 04:34 Creatinine 0.9 mg/dL (0.6-1.2) 09/08/20 04:34 Estimated GFR (MDRD) 89 (>89) 09/08/20 04:34 Glucose 96 mg/dL (70-100) 09/08/20 04:34 Lactic Acid 1.5 mmol/L (0.5-2.2) 09/07/20 04:52 Calcium 7.9 mg/dL (8.5-10.3) L 09/08/20 04:34 Magnesium 2.3 mg/dL (1.7-2.8) 09/06/20 12:50 Total Bilirubin 1.0 mg/dL (0.2-1.0) 09/06/20 12:50 AST 38 IU/L (10-42) 09/06/20 12:50 ALT 52 IU/L (10-60) 09/06/20 12:50 Alkaline Phosphatase 72 IU/L (42-121) 09/06/20 12:50 Ammonia 17.8 umol/L (7-35) 09/06/20 13:16 Total Creatine Kinase 467 IU/L (22-269) H 09/06/20 16:55 Troponin I High Sens 6.8 ng/L (2.3-19.7) 09/06/20 12:50 Total Protein 8.4 g/dL (6.7-8.2) H 09/06/20 12:50 Albumin 5.1 g/dL (3.2-5.5) 09/06/20 12:50 Globulin 3.4 g/dL (2.1-4.2) 09/06/20 12:50 Albumin/Globulin Ratio 1.5 (1.0-2.2) 09/06/20 12:50 Lipase 20 U/L (22-51) L 09/06/20 12:50 Urine Color STRAW 09/06/20 14:04 Urine Clarity HAZY (CLEAR) 09/06/20 14:04 Urine pH 6.0 PH (5.0-7.5) 09/06/20 14:04 Ur Specific [place] 1.020 (1.002-1.030) 09/06/20 14:04 Urine Protein 30 mg/dL (NEGATIVE) H 09/06/20 14:04 Urine Glucose (UA) 100 mg/dL (NEGATIVE) H 09/06/20 14:04 Urine Ketones NEGATIVE mg/dL (NEGATIVE) 09/06/20 14:04 Urine Occult Blood MODERATE (NEGATIVE) H 09/06/20 14:04 Urine Nitrite NEGATIVE (NEGATIVE) 09/06/20 14:04 Urine Bilirubin NEGATIVE (NEGATIVE) 09/06/20 14:04 Urine Urobilinogen 0.2 (NORMAL) E.U./dL (NORMAL) 09/06/20 14:04 Ur Leukocyte Esterase NEGATIVE (NEGATIVE) 09/06/20 14:04 Urine RBC 6-10 /HPF (0-5) H 09/06/20 14:04 Urine WBC 0-3 /HPF (0-3) 09/06/20 14:04 Ur Squamous Epith Cells NONE SEEN (<= Few) 09/06/20 14:04 Urine Bacteria None Seen /HPF (None Seen) 09/06/20 14:04 Urine Mucus Few Strands 09/06/20 14:04 Ur Microscopic Review INDICATED 09/06/20 14:04 Urine Culture Comments NOT INDICATED 09/06/20 14:04 CSF Color COLORLESS (COLORLESS) 09/06/20 15:50 CSF Clarity CLEAR (CLEAR) 09/06/20 15:50 Xanthrochromic ABSENT (ABSENT) 09/06/20 15:50 CSF WBC 1 /mm^3 (0-5) 09/06/20 15:50 CSF RBC 0 /mm^3 (0-1) 09/06/20 15:50 CSF Cell Count Tube # CSF TUBE# 3 09/06/20 15:50 CSF Glucose 103 mg/dL (45-70) H 09/06/20 15:50 CSF Total Protein 45 mg/dL (15-45) 09/06/20 15:50 Nasal Adenovirus (PCR) NOT DETECTED 09/06/20 12:21 Nasal B. parapertussis DNA (PCR) NOT DETECTED 09/06/20 12:21 Nasal Coronavir 229E PCR NOT DETECTED 09/06/20 12:21 Nasal Coronavir HKU1 PCR NOT DETECTED 09/06/20 12:21 Nasal Coronavir NL63 PCR NOT DETECTED 09/06/20 12:21 Nasal Coronavir OC43 PCR NOT DETECTED 09/06/20 12:21 Nasal Enterovir/Rhinovir PCR NOT DETECTED 09/06/20 12:21 Nasal Influenza B PCR NOT DETECTED 09/06/20 12:21 Nasal Influenza A PCR NOT DETECTED 09/06/20 12:21 Nasal Parainfluen 1 PCR NOT DETECTED 09/06/20 12:21 Nasal Parainfluen 2 PCR NOT DETECTED 09/06/20 12:21 Nasal Parainfluen 3 PCR NOT DETECTED 09/06/20 12:21 Nasal Parainfluen 4 PCR NOT DETECTED 09/06/20 12:21 Nasal RSV (PCR) NOT DETECTED 09/06/20 12:21 Nasal B.pertussis DNA PCR NOT DETECTED 09/06/20 12:21 Nasal C.pneumoniae (PCR) NOT DETECTED 09/06/20 12:21 Luis Human Metapneumo PCR NOT DETECTED 09/06/20 12:21 Nasal M.pneumoniae (PCR) NOT DETECTED 09/06/20 12:21 Nasal SARS-CoV-2 (PCR) NOT DETECTED 09/06/20 12:21 Salicylates < 6.0 mg/dL 09/06/20 12:50 Urine Opiates Screen NEGATIVE (NEGATIVE) 09/06/20 14:04 Ur Oxycodone Screen NEGATIVE (NEGATIVE) 09/06/20 14:04 Urine Methadone Screen NEGATIVE (NEGATIVE) 09/06/20 14:04 Ur Propoxyphene Screen NEGATIVE (NEGATIVE) 09/06/20 14:04 Acetaminophen < 10 ug/mL (10-30) L 09/06/20 12:50 Ur Barbiturates Screen NEGATIVE (NEGATIVE) 09/06/20 14:04 Ur Tricyclics Screen NEGATIVE (NEGATIVE) 09/06/20 14:04 Ur Phencyclidine Scrn NEGATIVE (NEGATIVE) 09/06/20 14:04 Ur Amphetamine Screen NEGATIVE (NEGATIVE) 09/06/20 14:04 U Methamphetamines Scrn NEGATIVE (NEGATIVE) 09/06/20 14:04 U Benzodiazepines Scrn NEGATIVE (NEGATIVE) 09/06/20 14:04 Urine Cocaine Screen NEGATIVE (NEGATIVE) 09/06/20 14:04 U Cannabinoids Screen NEGATIVE (NEGATIVE) 09/06/20 14:04 Ethyl Alcohol < 5.0 mg/dL 09/06/20 12:50 Serum Ketones NEGATIVE (NEGATIVE) 09/06/20 12:50 Blood Type O POSITIVE 09/06/20 12:50 Blood Type Recheck O POSITIVE 09/06/20 14:54 Antibody Screen NEGATIVE 09/06/20 12:50 Crossmatch IS Only See Detail 09/06/20 12:50 ABX Reporting Has patient been on IV antibiotics over the past 48 hours?: Yes
[2020-09-08] MEDS: cefTRIAXone 2 GM in SODIUM CHLORIDE 0.9% MINIBAG 100 ML IV SCH ×2 (08:29→11:11)
[2020-09-08] MEDS: PANTOPRAZOLE 40 MG VIAL IVP SCH (08:33)
[2020-09-08] MEDS: THIAMINE 100 MG TABLET PO SCH (08:35)
[2020-09-08] MEDS: PRENATAL VITAMIN TABLET PO SCH (08:35)
[2020-09-08] MEDS ORDERED: BENZOCAINE/MENTHOL LOZENGE MM PRN (08:39)
--- NOTE | 2020-09-08 10:35 | PHARMACY PROGRESS NOTE ---
- Best Possible Medication History Admit Date and Time: 09/06/20 1638 Processed by: Pharmacy Medication History completed: Yes Patient Interview: Completed Secondary Source(s): Physician records, Pharmacy records, Insurance records (PATIENT CONFUSED. MEDICATION RECONCILIATION COMPLETED USING ONLY INSURANCE RECORDS AND THE BRTOHER CONFIRMED WELL) As the person ultimately responsible for medication therapy, providers are able to order a medication from an existing home medication list in [facility] via the "Reconcile Routine" prior to Confirmation of that medication by support services coordinator. Such practice is discouraged except when the physician, in their clinical judgment, deems that a medical need exists for a medication without regard to previous use.
[2020-09-08] MEDS: LABETALOL 20 MG/4 ML SYRINGE IVP PRN ×2 (11:35→17:39)
[2020-09-08] MEDS: SODIUM CHLORIDE 0.9% 1,000 ML IV SCH ×2 (12:17→14:10)
[2020-09-08] MEDS ORDERED: LORazepam 1 MG TABLET PO STA (13:10)
[2020-09-08] MEDS ORDERED: FUROSEMIDE 40 MG/4 ML VIAL IVP STA (16:40)
[2020-09-08 17:15] LABS: ALBUMIN 4.4 g/dL (3.2-5.5); ALKALINE PHOSPHATASE 63 IU/L (42-121); ALT ALANINE AMINOTRANSFERASE 46 IU/L (10-60); AST ASPARTATE AMINOTRANSFERASE 29 IU/L (10-42); BILIRUBIN,DIRECT 0.1 mg/dL (0.1-0.5); BILIRUBIN,TOTAL 0.6 mg/dL (0.2-1.0); SALICYLATE < 6.0 mg/dL; TOTAL PROTEIN 7.8 g/dL (6.7-8.2)
[2020-09-09] MEDS: SODIUM CHLORIDE FLUSH 0.9% 10 ML SYRINGE IVP SCH ×2 (03:01→08:33)
[2020-09-09] MEDS: SODIUM CHLORIDE FLUSH 0.9% 10 ML SYRINGE IVP PRN (03:01)
[2020-09-09 05:20] LABS: BASOPHILS # (AUTO) 0.1 10^3/uL (0.0-0.1); BASOPHILS % (AUTO) 0.8 %; EOSINOPHILS # (AUTO) 0.2 10^3/uL (0.0-0.7); EOSINOPHILS % (AUTO) 2.2 %; HGB - HEMOGLOBIN 13.7 g/dL (14.0-18.0); LYMPHOCYTES # (AUTO) 2.7 10^3/uL (1.5-3.5); LYMPHOCYTES % (AUTO) 29.1 %; MEAN CORPUSCULAR HEMOGLOBIN 31.9 pg (27.0-31.0); MEAN CORPUSCULAR HGB CONC 33.8 g/dL (32.0-36.0); MEAN CORPUSCULAR VOLUME 94.2 fL (80.0-94.0); MEAN PLATELET VOLUME 9.3 fL (7.4-11.4); MONOCYTES # (AUTO) 0.9 10^3/uL (0.0-1.0); MONOCYTES % (AUTO) 9.9 %; NEUTROPHILS # (AUTO) 5.3 10^3/uL (1.5-6.6); NEUTROPHILS % (AUTO) 57.7 %; PLT - PLATELET COUNT 253 10^3/uL (130-450); RED CELL DISTRIBUTION WIDTH 13.7 % (12.0-15.0); WHITE BLOOD COUNT 9.1 x10^3/uL (4.8-10.8)
[2020-09-09 05:34] LABS: CREATININE 1.1 mg/dL (0.6-1.2)
--- NOTE | 2020-09-09 07:35 | DISCHARGE SUMMARY ---
Discharge Summary Admit Date: 09/06/20 Discharge Date: 09/09/20 Discharging Provider: Jenny Johnson Code Status: Attempt Resuscitation Condition at Discharge: Stable Discharge Disposition: 01 Home, Self Care - DIAGNOSES Admission Diagnoses: Altered mental status Leukocytosis Hypertension Discharge Diagnoses with Status of Each Condition: Altered mental status: Secondary to intentional medication overdose. Resolved Leukocytosis: Reactive resolved Hypertension: Improved patient discharged with medication - HPI History of Present Illness: The patient is a 50-year-old male who presented to the ED with altered mental status. Initially it was thought that he was having bleeding. However on further examination it did not appear to be coffee-ground emesis. Over his hospital stay his hemoglobin stayed around 15 and there were no episodes of bleeding. The patient resides in [place] and had gone to visit his children who live with his ex in [facility]. He last made a call to a relative somewhere in [place]. At the time of admission the patient could not account for how he ended up in [facility] from [place]. Over 3 days his mentation steadily improved and he was able to relate sequence of events. On the day he presented to the hospital he had taken half a bottle of Benadryl and had drank 6 cans of beer. It was intentional. He expressed that he is feeling overwhelmed because of financial problems. He filed bankruptcy a few years ago and no one in his family knows about that. He also was emotionally distraught after having visited his children. He stated that he feels he is losing control of his 5. He is also not very satisfied with the job he is doing. He explains that he has come up to [facility] to [place] on multiple occasions and he had planned to retire up in [facility]. However when he looks at his current financial situation he realizes he would never be able to fulfill the dream. He drove up here because if he had fun memories of the place. He denies any previous history of suicidal ideations or attempts. He where he mainly states he realizes the futility of his actions and regrets them. He does not intend to repeat it again. He was seen by social [facility] and was deemed not to be a harm to himself. Initially he was treated empirically with antibiotics for concern for possible meningitis because he had leukocytosis corresponding with the altered mental status. His white blood count at admission was 22. Over the course of 3 days it steadily decreased and normalized. Consequently antibiotics were discontinued. His brother Marko Bautista who lives in [facility] came to the hospital. When the patient's mentation improved/resolved he gave me permission to talk to him. Patient subsequently also talked with his brother and explained what he was going through. His brother is readily and willing to be support for him upon discharge. The patient stayed persistently tachycardic for a couple of days. He was maintained on IV hydration. Poison control was contacted after the substance he consumed which was Benadryl was known. They recommended repeating salicylate and Tylenol levels which were normal the recommended repeating an EKG on which his QTC and QRS were normal. The patient's diastolic blood pressure stayed persistently high above 100. He was treated with labetalol and hydralazine. Upon discharge he was given combination of Norvasc and irbesartan. He was advised to follow-up with his primary care physician once he arrived home in [place]. He expressed understanding and was agreeable to the plan. - ALLERGIES Allergies/Adverse Reactions: Allergies Allergy/AdvReac Type Severity Reaction Status Date / Time aspirin Allergy Unknown Verified 09/06/20 12:27 Penicillins Allergy Unknown Verified 09/06/20 12:27 Sulfa (Sulfonamide Allergy Unknown Verified 09/06/20 12:27 Antibiotics) - MEDICATIONS Home Medications: Ambulatory Orders Medication Instructions Recorded Confirmed Atorvastatin [Lipitor] 40 mg PO QPM 09/06/20 09/07/20 Fluoxetine HCl [Prozac] 20 mg PO DAILY 09/06/20 09/07/20 Amlodipine Besylate/Valsartan 1 each PO DAILY #30 tablet 09/09/20 [Amlodipine-Valsartan 5-160 mg] - PHYSICAL EXAM AT DISCHARGE General Appearance: positive: No acute distress, Alert Eyes Bilateral: positive: PERRL, EOMI ENT: positive: No signs of dehydration Neck: positive: Nml inspection, No JVD, Trachea midline Respiratory: positive: Chest non-tender, No respiratory distress, Breath sounds nml. negative: Wheezes, Rales, Rhonchi Cardiovascular: positive: Regular rate & rhythm Abdomen: positive: Non-tender, No organomegaly, Nml bowel sounds, No distention Back: positive: Nml inspection Skin: positive: Color nml, No rash, Warm, Dry Extremities: positive: Non-tender, Full ROM, Nml appearance Neurologic/Psychiatric: positive: Oriented x3, CN's nml (2-12), Mood/affect nml - LABS Result Diagrams: 09/09/20 04:55 09/09/20 04:55 - TIME SPENT Time Spent in Discharge (Minutes): 25
--- NOTE | 2020-09-09 07:47 | Discharge Plan ---
Discharge Plan Problem Reviewed?: Yes Disposition: Home, Self Care Condition: Stable Prescriptions: Amlodipine Besylate/Valsartan [Amlodipine-Valsartan 5-160 mg] 1 each PO DAILY #30 tablet Diet: Low Sodium Activity Restrictions: No Restrictions Shower Restrictions: No Driving Restrictions: No Health Concerns: You presented with altered mental status. You were unable to Provide history for a couple days. As a result you underwent extensive work-up to include spinal tap to look for an infection. He also had blood and urine cultures done which were unremarkable. A CT scan of the abdomen pelvis showed possible colitis. UA on antibiotics of vancomycin, Rocephin and Flagyl. Your white count improved daily After 3 days of hospital stay it was back to normal. You did not have a fever. CT scan of your brain was unremarkable. The drug toxicology was negative. You were given IV fluids during your stay here. You had an elevated blood pressure and heart rate. This was controlled as needed with a blood pressure medication. In the course of his stay there was some concern about you being of harm to yourself. So you were put on observation On the 3rd day your mentation improved significantly. You expressed significant stresses you are experiencing in live currently and stated taking too many sleeping pills Benadryl. Over the course of 3 days and with IV hydration the symptoms of Benadryl which monthly include increased heart rate, dry mouth, feeling jittery improved and subsided. You were evaluated by social work who determined you were Safe for discharge home. You are agreeable to share you hardship with the someone in you life and make efforts towards finding solution Your blood pressure was slightly elevated on the day of discharge. As a result you were given a prescription of amlodopine/valsartan 5mg-160mg. Take 1 tablet by mouth daily. Monitor your blood pressure in the morning and evening for 7 days and take records to you PCP during your next visit Follow-up with your primary care physician back at home in [place] for further management. Plan of Treatment: You presented with altered mental status. You were unable to Provide history for a couple days. As a result you underwent extensive work-up to include spinal tap to look for an infection. He also had blood and urine cultures done which were unremarkable. A CT scan of the abdomen pelvis showed possible colitis. UA on antibiotics of vancomycin, Rocephin and Flagyl. Your white count improved daily After 3 days of hospital stay it was back to normal. You did not have a fever. CT scan of your brain was unremarkable. The drug toxicology was negative. You were given IV fluids during your stay here. You had an elevated blood pressure and heart rate. This was controlled as needed with a blood pressure medication. In the course of his stay there was some concern about you being of harm to yourself. So you were put on observation On the 3rd day your mentation improved significantly. You expressed significant stresses you are experiencing in live currently and stated taking too many sleeping pills Benadryl. Over the course of 3 days and with IV hydration the symptoms of Benadryl which monthly include increased heart rate, dry mouth, feeling jittery improved and subsided. You were evaluated by social work who determined you were Safe for discharge home. You are agreeable to share you hardship with the someone in you life and make efforts towards finding solution Your blood pressure was slightly elevated on the day of discharge. As a result you were given a prescription of amlodopine/valsartan 5mg-160mg. Take 1 tablet by mouth daily. Monitor your blood pressure in the morning and evening for 7 days and take records to you PCP during your next visit Follow-up with your primary care physician back at home in [place] for further management. Care Goals: You presented with altered mental status. You were unable to Provide history for a couple days. As a result you underwent extensive work-up to include spinal tap to look for an infection. He also had blood and urine cultures done which were unremarkable. A CT scan of the abdomen pelvis showed possible colitis. UA on antibiotics of vancomycin, Rocephin and Flagyl. Your white count improved daily After 3 days of hospital stay it was back to normal. You did not have a fever. CT scan of your brain was unremarkable. The drug toxicology was negative. You were given IV fluids during your stay here. You had an elevated blood pressure and heart rate. This was controlled as needed with a blood pressure medication. In the course of his stay there was some concern about you being of harm to yourself. So you were put on observation On the 3rd day your mentation improved significantly. You expressed significant stresses you are experiencing in live currently and stated taking too many sleeping pills Benadryl. Over the course of 3 days and with IV hydration the symptoms of Benadryl which monthly include increased heart rate, dry mouth, feeling jittery improved and subsided. You were evaluated by social work who determined you were Safe for discharge home. You are agreeable to share you hardship with the someone in you life and make efforts towards finding solution Your blood pressure was slightly elevated on the day of discharge. As a result you were given a prescription of amlodopine/valsartan 5mg-160mg. Take 1 tablet by mouth daily. Monitor your blood pressure in the morning and evening for 7 days and take records to you PCP during your next visit Follow-up with your primary care physician back at home in [place] for further management. No Smoking: If you smoke, Please STOP! Call for help.
[2020-09-09] MEDS ORDERED: amLODIPine 5 MG TABLET PO ONE (08:00)
[2020-09-09] MEDS: PRENATAL VITAMIN TABLET PO SCH (08:32)
[2020-09-09] MEDS: THIAMINE 100 MG TABLET PO SCH (08:32)
[2020-09-09] MEDS ORDERED: polyethylene glycoL 3350 17 GM PACKET PO SCH (09:00)
[2020-09-09] MEDS ORDERED: ACETAMINOPHEN 325 MG TABLET PO STA (11:06)
[2020-09-09 12:35] VITALS: BP 136/104
[2020-09-13 14:56] LABS: SOURCE CEREBROSPINAL FLUID
== END 2020-09-09 12:50 | disposition home or self-care (01) | DRG 918 ==
LOC: ED 12:16 → MS2 16:38
PROVIDERS: ADMIT Internal Medicine; ATTEND Internal Medicine
DX: T45.0X2A Poisoning by antiallergic and antiemetic drugs, intentional self-harm, initial encounter (principal); E87.2 Acidosis; T51.0X2A Toxic effect of ethanol, intentional self-harm, initial encounter; R41.82 Altered mental status, unspecified; R00.0 Tachycardia, unspecified; D72.829 Elevated white blood cell count, unspecified; I10 Essential (primary) hypertension; E78.00 Pure hypercholesterolemia, unspecified; F32.9 Major depressive disorder, single episode, unspecified; Z79.899 Other long term (current) drug therapy; Z20.822 Contact with and (suspected) exposure to COVID-19
CPT/HCPCS: 0202U; 36415; 62270; 70450; 71250; 74176; 80048; 80053; 80076; 80306; 80307; 80320; 80329; 81001; 82009; 82140; 82550; 82803; 82945; 83605; 83690; 83735; 84157; 84484; 85025; 85027; 85610; 86850; 86900; 86901; 86920; 87040; 87070; 87205; 87529; 89051; 93005; 96365; 96375; 99285; A9270; J2060; J3370; J3411; J7040; J8499; 80202; 81003; 87086